=== PATIENT | female | born 1960 | race Caucasian/White ===

== ENCOUNTER → 2024-02-24 08:23 | Outpatient (REF) | payer OTHER, SELFPAY | LOC: RCS 08:23 | PROVIDERS: ATTENDING PHYSICIAN Internal Medicine Cardiovascular Disease; FAMILY PHYSICIAN Family Medicine | DX: R07.89 Other chest pain (principal); I10 Essential (primary) hypertension; R06.09 Other forms of dyspnea | CPT/HCPCS: 93306 ==

== ENCOUNTER 2024-11-18 12:16 | Emergency (ER) | payer OTHER, SELFPAY ==
[2024-11-18 12:28] VITALS: BP 150/80
[2024-11-18 15:05] VITALS: BP 127/70
[2024-11-18 15:12] LABS: Hematocrit 39.7 % (37.0-47.0); Hemoglobin 13.4 g/dL (12.0-16.0); Mean Corp Hgb Conc. 33.8 g/dL (33.0-37.0); Mean Corpuscular Volume 86.1 fL (81.0-99.0); Nucleated Red Blood Cells % 0 %; Platelet Count 219 10^3/uL (130-400); Red Cell Dist. Width 12.9 % (11.5-14.5)
--- NOTE | 2024-11-18 15:13 | ED.GENMED ---
History of Present Illness
General
Chief Complaint: Abdominal Pain
Source: patient
Exam Limitations: none
Time Seen by Provider: 11/18/24 15:12
History of Present Illness
History of Present Illness:
64-year-old female started with lower abdominal pain yesterday. Points to both sides of her lower abdomen. No radiation of the back. No nausea or vomiting. No change in bowels. No fever or chills. No urinary symptoms. No history of similar
pain. Pain is mild to moderate in nature at times. Also was felt to be in atrial flutter at the primary care office although she has no chest pain shortness of breath fluttering sensation rapid heartbeat or any other cardiac symptoms
Past History
Past History
ED Past Medical History: COPD, HTN and Other (Migraines)
ED Past Surgical History: Cholecystectomy
Social History
Tobacco: Non-smoker
Alcohol: None
Personal:
Living: with family
Review of Systems
Review of Systems
All Other Systems: Not applicable
Constitutional: Denies fever or chills
: Reports no symptoms
Phy Exam
Physical Exam
Physical Exam:
GENERAL: Alert and oriented in no apparent distress
EYE: Orbits normal.
NECK: Supple
CARDIAC: Regular rate and rhythm without any obvious murmurs.
LUNGS: Clear breath sounds,normal
ABDOMEN: Soft, mild left lower quadrant tenderness. Reproducible. No rebound or guarding no mass or hernia. No tenderness right lower quadrant or suprapubic.
NEUROLOGICAL: Alert and oriented , grossly non-focal
SKIN: Warm and dry, no rash or lesion, no discoloration, skin intact.
MUSCULOSKELETAL: No edema,no deformity.Good color
PSYCH: Normal and appropriate interaction.
Course
Orders/Labs/Results
Orders:
Orders
11/18/24 12:32
Electrocardiogram (*1) Urgent
Reason for Study: Abnormal EKG
EKG- Treatment ONCE
11/18/24 14:59
Complete Blood Count/With Diff Urgent
Troponin I Urgent
11/18/24 15:07
Urinalysis Reflex To Culture Urgent
Date Specimen was Collected: 11/18/24
Time Specimen was Collected: 15:01
Urine Microscopic Reflex Cult Urgent
Urine Culture Urgent
JUAN Source: U
Specimen Description:
Date Specimen was Collected: 11/18/24
Time Specimen was Collected: 15:01
11/18/24 15:23
CT Abd/Pel (IV only)-DH only Urgent
Comment:
Reason For Exam: Lower abdominal pain mostly left lower quadrant
IV Insert/Care/Rem.- Treatment PRN
0.9% Sodium Chloride 500 ml [Nss] 500 ml IV BOLUS
11/18/24 15:47
Comprehensive Metabolic Panel Urgent
Lipase Urgent
11/18/24 18:12
Amoxicillin 875 mg/Clav 125 mg [Augmentin 875 mg/125 mg] 1 tablet PO NOW STA
Abnormal Lab Results
11/18/24 11/18/24 11/18/24
14:59 15:07 15:47
Absolute Monos (auto) 0.9 H 10^3/uL
(0.1-0.6)
Monocytes % 11.8 H %
(1.7-9.3)
BUN 18 H mg/dl
(7-17)
Glucose 104 H mg/dl
(70-99)
Ur Occult Blood Reflex 2+ A
(Negative)
Leukocyte Esterase Rfl 2+ A
(Negative)
Urine WBC (Reflex) 11-15 A /HPF
(0-5)
Urine Bacteria (Reflex) Moderate A
(Negative)
Urine Albumin (Reflex) 2+ A
(Neg - Trace)
11/18/24 14:59
11/18/24 15:47
Vital Signs
Initial and Last Documented VS:
Initial Vital Signs
Temp Pulse Resp BP Pulse Ox
98.8 F 90 18 150/80 96
11/18/24 12:28 11/18/24 12:28 11/18/24 12:28 11/18/24 12:11/18/24 12:28
Last Documented Vital Signs
Temp Pulse Resp BP Pulse Ox
98.8 F 90 18 150/80 96
11/18/24 12:28 11/18/24 12:28 11/18/24 12:28 11/18/24 12:28 11/18/24 15:14
MDM/Problems Addressed
Differential Diagnosis Includes:
As for patient's abdominal symptoms. Mostly left lower quadrant. Most suspicious of mild diverticulitis. Clinically stable and nontoxic. White count is normal. Await CT scan. Differential would also include atypical appendicitis colitis.
Doubt UTI. EKG here is normal. She has had no arrhythmias here. EKG was reviewed from the office. The electronic readout showed atrial flutter but patient's EKG is actually a normal sinus rhythm. No acute cardiac issues
*Radiology
Radiology exam reviewed: radiology read reviewed (Acute sigmoid diverticulitis)
*Pulse Oximetry
SaO2: 96
Oxygen Mode of Delivery: Room air
Patient hypoxic: no
*EKG
Interpreted by ED Provider?: Yes
Interpretation: abnormal
Comparison EKG: changes noted
Heart Rate: 88
Rate: normal
Rhythm: sinus
[place]: left axis deviation
Interval: normal interval
QRS Pattern: normal QRS
Ischemia: no ischemia
*Critical Care Note
Total Time (30-74mins, 75-104mins- exclusive of procedures): Not Applicable
Data Reviewed
Review of Other/Old Records Reveals: Labs, Records and Testing
Update Note
Update Note:
Patient nontoxic no distress. Nonsurgical abdomen. Mild tenderness but no severe tenderness. No rebound or guarding no mass or hernia. Normal white count no perforation. Reasonable for outpatient management. Will start with Augmentin. Patient
is comfortable with this approach
ED Attending Note
-
Portions of this chart may have been created with voice recognition software.� Occasional wrong word or��sound alike� substitutions may have occurred due to the inherent limitations of voice recognition software.
Discharge Plan
Departure
Patient Disposition: Home (Routine Discharge)
Date of Disposition: 11/18/24
Time of Disposition: 18:14
Patient with high blood pressure during this ER visit?: Yes
Discharge Problem:
Acute sigmoid diverticulitis
Instructions: Diverticulitis (DC), BLOOD PRESSURE
Prescriptions:
New
amoxicillin-pot clavulanate 875-125 mg tablet
1 tab PO BID Qty: 10 0RF
No Action
metoprolol tartrate 100 MG tablet
100 mg PO DAILY
allopurinol 100 MG tablet
100 mg PO DAILY
pantoprazole 40 MG tablet,delayed release (DR/EC)
40 mg PO DAILY
metformin 500 MG tablet extended release 24 hr
500 mg PO BID
prednisone 10 MG tablet
10 mg PO .TAPER Qty: 30 0RF
Rx Instructions:
Take 40mg daily x3days, 30mg daily x3days,
20mg daily x3days, 10mg daily x3days.
promethazine-codeine 5 ML syrup
5 ml PO Q4HPRN PRN (Reason: cough) Qty: 90 0RF
Referrals:
Dinah Seth PA-C [Family Provider, Family Practice] - Follow up in 2-3 days
Activity Restrictions/Additional Instructions:
A prescription was sent to your pharmacy
Light diet the next few days
Advil or Motrin for pain. You could also use Tylenol
Get rechecked with increasing pain persistent pain fever vomiting or if symptoms or not improving in 2 to 3 days
Interventions
Interventions:
*Risk Screen - Suicide Last Done: 11/18/24 12:31
*Neglect/Abuse Screening Last Done: 11/18/24 12:31
Discharge Date and Time
Print Language: CZECH
[2024-11-18 15:20] LABS: Urine Character Clear (Clear)
[2024-11-18 15:29] LABS: Troponin I < 0.012 ng/ml
[2024-11-18 15:39] LABS: Urine Red Blood Cell 0-2 /HPF (0-2)
[2024-11-18] MEDS: NSS 500 IV (15:48)
[2024-11-18 16:00] VITALS: BP 133/74
[2024-11-18 16:11] LABS: ALT (SGPT) 14 U/L (0-35); AST (SGOT) 25 U/L (14-36); Albumin 4.1 g/dl (3.5-5.0); Alkaline Phosphatase 64 U/L (38-126); Blood Urea Nitrogen 18 mg/dl (7-17); Calcium 9.8 mg/dl (8.4-10.2); Carbon Dioxide 26 mmol/L (22-30); Chloride 104 mmol/L (98-107); Glucose 104 mg/dl (70-99); Lipase 92 U/L (23-300); Potassium 3.7 mmol/L (3.5-5.1); Sodium 137 mmol/L (135-145); Total Protein 7.1 g/dl (6.3-8.2); eGFR > 60.00
[2024-11-18 17:00] VITALS: BP 139/72
[2024-11-18] MEDS: AUGMENTIN 875 MG/125 MG 1 TABLET PO (18:39)
[2024-11-18 19:31] VITALS: BP 128/69
== END 2024-11-18 19:32 | disposition home or self-care (01) ==
LOC: EMR 12:16
PROVIDERS: Emergency Medicine; EMERGENCY PHYSICIAN Emergency Medicine; FAMILY PHYSICIAN Physician Assistant Medical
DX: K57.32 Diverticulitis of large intestine without perforation or abscess without bleeding (principal); I10 Essential (primary) hypertension; J44.9 Chronic obstructive pulmonary disease, unspecified
CPT/HCPCS: 99284; 96360; 96361; 74177; 80053; 81003; 81015; 83690; 84484; 85025; 87086; 93005; Q9967